=== PATIENT | female | born 1985 | race Caucasian/White ===

== ENCOUNTER 2022-11-22 15:22 | Emergency (ER) | payer OTHER ==
--- OUTSIDE RECORDS SUMMARY | 2022-11-22 15:26 | XMS REPORT | Continuity of Care Document ---
:1985 Author Organization [facility] t Address [address] [place] [address] Care Team Providers Name Role Phone UNKNOWN, REFERRING Primary Care Physician Unavailable E/R Physician, E Attending Clinician Unavailable Payers Payer Name Policy Type Policy Number Effective Date Expiration Date S ource Problems This patient has no known problems. Allergies, Adverse Reactions, Alerts Allergy Allergy Status Severity Reaction(s) Onset Inactive Treating Comm ents Source Name Type Date Date Clinician morphine DA Active U Unknown MCSETXm 05-17 00:00: 00 Medications This patient has no known medications. Procedures This patient has no known procedures. Encounters Start End Encounter Admission Attending Care Care Encounter Source Date/Time Date/Time Type Type Clinicians Facility Department ID 2021-05-17 Inpatient [facility] M[facility] [id number] [facility] 22:26:00 88 2021-05-17 2021-05-17 Emergency [facility]m M[facility] [id number] [facility]m 22:26:00 22:26:00 88 2017-10-03 2017-10-03 Emergency E MCSETX MED [id number] Medical 15:54:00 15:54:00 [facility] Results Test Description Test Time Test Comments Results Result Comments Source Troponin I High Sensitivity 2021-05-18 00:05:00 Test Item Value Reference Range Interpretation Comme nts Troponin I High Sensitivity (test code = TROPHS) 37.3 ng/L 0-58. 9 N UC, Urine [id number] 23:22:00 Test Item Value Reference Range Interpretation Comments UC, Urine Culture (test code Escherichia coli = UC) [place] Count (test code = >100,000 [place] Count) Gram Negative [id number] 23:22:00 Test Item Value Reference Range Interpretation Comments Amikacin (test code = AN) <=2 S Ampicillin (test code = AM) >=32 R Ampicillin/Sulbactam (test code = AMS) >=32 R Cefazolin (test code = CZ) <=4 S Cefepime (test code = FEP) <=1 S Cefoxitin (test code = JOHNSTON) <=4 S Ceftazidime (test code = YVAN) <=1 S Ceftriaxone (test code = CTR) <=1 S Ciprofloxacin (test code = CIP) <=0.25 S Gentamicin (test code = GM) <=1 S Levofloxacin (test code = LEV) <=0.12 S Meropenem (test code = MEM) <=0.25 S Nitrofurantoin (test code = FD) <=16 S Tobramycin (test code = TOB) <=1 S Trimethoprim/Sulfamethoxazole (test <=20 S code = SXT) Piperacillin/Tazobactam (test code = <=4 S TZP) Complete Blood Count Auto [id number] 22:45:00 Test Item Value Reference Range Interpretation Comments White Blood Count (test code = 10.6 x10 3/uL 4.8-10.8 N WBCT) Red Blood Count (test code = 4.08 x10 6/uL 4.20-5.50 L RBC) Hemoglobin (test code = HGBT) 12.5 g/dL 12.0-16.0 N Hematocrit (test code = HCTT) 37.7 % 35.0-47.0 N Mean Corpuscular Volume (test 92.4 fL 80.0-95.0 N code = MCV) Mean Corpuscular Hemoglobin 30.6 pg 26.0-32.0 N (test code = MCH) Mean Corpuscular HGB Conc (test 33.2 g/dL 31.0-36.0 N code = MCHC) Red Cell Distribution Width 12.1 % 11.5-14.5 N (test code = RDW) Platelet Count (test code = 207 x10 3/uL 140-440 N PLTT) Mean Platelet Volume (test code 8.5 fL 7.5-11.2 N = MPV) Immature Granulocytes % (Auto) 0.5 % (test code = IMMGRAN%) Neutrophils % (Auto) (test code 88.7 % = NE%) Lymphocytes % (Auto) (test code 2.5 % = LY%) Monocytes % (Auto) (test code = 8.1 % MO%) Eosinophils % (Auto) (test code 0.0 % = EO%) Basophils % (Auto) (test code = 0.2 % BA%) Immature Granulocytes # (Auto) 0.05 x10 3/uL (test code = IMMGRAN#) Neutrophils # (Auto) (test code 9.4 x10 3/uL 2.7-7.3 H = NE#) Lymphocytes # (Auto) (test code 0.3 x10 3/uL 0.8-3.5 L = LY#) Monocytes # (Auto) (test code = 0.9 x10 3/uL 0.3-0.9 N MO#) Eosinophils # (Auto) (test code 0.0 x10 3/uL 0.0-0.3 N = EO#) Basophils # (Auto) (test code = 0.0 x10 3/uL 0.0-0.1 N BA#) nRBC Abs (test code = NRBCA) 0 10>3/mcL nRBC Pct (test code = NRBCP) 0 % UA, Urinalysis Rflx [id number] 22:45:00 Test Item Value Reference Range Interpretation Comments Color,Urine (test code = UCOL) Dark Yellow Yellow A Clarity,Urine (test code = UCLAR) Cloudy Clear A PH,Urine (test code = UPH.XX) 6.0 5.0-8.0 Specific [place],Urine (test code 1.020 SGU 1.005-1.030 N = USG) Blood,Urine (test code = UBLD) 3+ Negative A Protein,Urine (test code = UPRO) 3+ Negative A Glucose,Urine (UA) (test code = 3+ Negative A UGLU) Ketones,Urine (test code = UKET) Trace Negative A Nitrate,Urine (test code = UNIT) Negative Negative Bilirubin,Urine (test code = Negative Negative UBIL) Urobilinogen,Urine (test code = >=8.0 EU/dL Negative A UURO) Leukocyte Esterase,Urine (test Trace Negative A code = ULEU) HCG, Urine Qual (LAB)[id number] 22:45:00 Test Item Value Reference Range Interpretation Comments HCG, Urine, Qual (test code = HCGU) Negative Negative Comprehensive Metabolic [id number] 22:45:00 Test Item Value Reference Range Interpretation Comments SODIUM (test code = NA) 131 mmol/L 136-145 L Potassium,K (test code = K) 3.3 mmol/L 3.5-5.1 L Chloride (test code = CL) 98 mmol/L 98-107 N Carbon Dioxide (test code = CO2) 26 mmol/L 21-32 N Anion Gap (test code = GAP) 7 mmol/L 7-16 N Blood Urea Nitrogen (test code = 6 mg/dL 7-18 L BUN) Glucose (test code = GLU) 142 mg/dL 74-106 H Calcium (test code = CA) 8.7 mg/dL 8.5-10.1 N Albumin Level (test code = ALB) 3.7 g/dL 3.4-5.0 N Creatinine (test code = CREATT) 1.0 mg/dL 0.6-1.0 N Creatinine Clr Calc Pharmacy 68.45 mL/min (test code = CRCLPHA) Estimated GFR ( [place] > 60 mL/min/1.73m2 (test code = EGFRAA) Estimated GFR (Non Afr [place] > 60 mL/min/1.73m2 (test code = EGFRNAA) BUN/Creatinine Ratio (test code 6 = BCRATIO) Bilirubin,Total (test code = 1.1 mg/dL 0.2-1.0 H BILIT) Aspartate Amino Transferase 31 IU/L 15-37 N (test code = AST) Alanine Aminotransferase (test 47 IU/L 12-78 N code = ALT) Total Protein (test code = TP) 8.0 g/dL 6.4-8.2 N Globulin (test code = GLOB) 4 Albumin/Globulin Ratio (test 0.9 ratio 1.2-3.0 L code = AGRATIO) Alkaline Phosphatase (test code 84 IU/L 50-136 N = ALP) [id number] 22:45:00 Test Item Value Reference Range Interpretation Comments Amylase (test code = MYCHAL) 40 IU/L 25-115 N [id number] 22:45:00 Test Item Value Reference Range Interpretation Comments Lipase (test code = LIP) 66 IU/L 73-393 L Urine [id number] 22:45:00 Test Item Value Reference Range Interpretation Comments RBC,Urine (test code = URBC.XX) >100 /HPF None Seen A WBC,Urine (test code = UWBC.XX) 30-50 /HPF None Seen A Squamous Epithelial Cell,Urine 74-200 /LPF 0-20 A (test code = USQEPI.XX) Bacteria,Urine (test code = 1+ /HPF Negative A UBACT) Troponin I High [id number] 22:45:00 Test Item Value Reference Range Interpretation Comments Troponin I High Sensitivity (test 35.9 ng/L 0-58.9 N code = TROPHS) CT abdomen pelvis [address] [id number] Patient Name: libertad cali Medical Record#: [id number] Address: [address] [place] [address] City/State/Zip: [place] [address]: Guillermo E/R Physician Insurance: Self Pay /Age/Sex: 1985/36/F Admit/Reg Date: 05/17/[address]: Brooks Danielson NP Location: [facility]/ PCP: Pcp-Fabian,Md BAZZI Date of Service: 05/17/21 Order (s): CT abdomen pelvis [facility] CPT Code: 75589 Report Number: [id number] Reason for Exam: Epigastric pain Orderingphysician: Brooks Danielson Indication: Back pain without gross hematuria, febrile, frequent kidney infections COMPARISON: None TECHNIQUE: Axial images of the abdomen and pelvis were performed without the administration of intravenous contrast material. Images were reformatted in the coronal and sagittal plane. CT scan was performed according to ALARA (as low as reasonably achievable) policy. FINDINGS: The lung bases are clear. The patient is status post cholecystectomy. The noncontrast appearance of theliver, spleen, adrenal glands and pancreas is within normal limits. The right kidney is unremarkable. There is minimal fullness of the left collecting system and ureter without aravind hydronephrosis. There are prominent left perinephric inflammatory changes. There is no abdominal aortic aneurysm. Thereis no significant free fluid in the pelvis. The noncontrast appearance of the uterus and ovaries is within normal limits. There is no bowel obstruction, widespread diverticulosis or acute diverticulitis. The appendix is identified and within normal limits. Bone windows through the abdomen and pelvis demonstrate no osseous destructive lesion. IMPRESSION: Prominent left perinephric inflammatory changes, concerning for pyelonephritis. Minimal fullness ofthe left collecting system and ureter may reflecturinary tract infection, without urinary system calculus appreciated. RL: [id number] AFC: [id number] Dictated By: Alessandra Valentino MD 05/17/21 2354 Signed By: Alessandra Valentino MD 05/18/21 0001 TD/TT: 05/17/214 Tech: [id number] cc: JAY Francois; PCPNO* Brooks Danielson NP; Pcp-Md ROSE MARY Peralta
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
[2022-11-22 23:09] VITALS: TEMP 98.8; O2SAT 98
== END 2022-11-22 16:26 | disposition home or self-care (01) ==
LOC: ER 15:22
DX: M54.50 Low back pain, unspecified (principal); V49.40XA Driver injured in collision with unspecified motor vehicles in traffic accident, initial encounter
CPT/HCPCS: 72100; 99283